=== PATIENT | female | born 1985 | race Caucasian/White ===

== ENCOUNTER → 2017-02-01 | Outpatient (CLI) | payer OTHER ==
[~2017-02-01] MED LIST: ALBU8I INH; EPIP0.3I IM; IBUP-232 PO; IBUP600 PO; OXYC1TAB63 PO; PERI8.6T PO; PRED20 PO; PRENTAB72 PO; SENN1TAB PO
== END ==
LOC: HPND 08:44
PROVIDERS: ATTEND Obstetrics & Gynecology
DX: O35.8XX0 Maternal care for other (suspected) fetal abnormality and damage, not applicable or unspecified (principal)
CPT/HCPCS: 76811; 76825; 76827; 93325

== ENCOUNTER 2017-02-02 14:56 | Emergency (ER) | payer OTHER ==
[~2017-02-02 14:56] MED LIST changes: -IBUP-232 PO; -OXYC1TAB63 PO; -SENN1TAB PO
--- NOTE | 2017-02-02 16:01 | PD ---
HPI Chief Complaint decreased motion Date Seen: Feb 02, 2017 Travel History International Travel<30 Days: No Contact w/Intl Traveler<30Days: No Known Affected Area: No History of Present Illness HPI 31 yo WF at 28 wks c/o dec FM since lat nite, no bleeding SROM or pain., FHR WNL for 28 wks and pt had US yest and arrythmia diagnosed by MFM. Para: 3 : 6 History Obstetric History Obstetric History 3 vag del 2 early preg losses Social History Alcohol Use: No Tobacco Use: No Substance Abuse: No Allergies-Medications (Allergen,Severity, Reaction): Coded Allergies: Bactrim (Verified Allergy, Severe, Anaphylaxis, 09/27/16) rash, swelling Sulfa (Verified Allergy, Mild, 09/27/16) Home Meds Active Scripts Epinephrine Inj (Epipen 2-Jaylen Inj)0.3 Mg/0.3 Ml Pfpen0.3 Mg IM ONCE PRN ( ALLERGIC REACTION) #1 PACK Ref 1 Prov:Tamiko Calhoun MD 09/27/16 Prednisone 20 Mg Tab20 Mg PO BID 3 Days Ref 0 Prov:Tamiko Calhoun MD 09/27/16 Sennosides-Docusate Sodium (Brittany-Colace 8.6-50 mg)1 Tab Tab2 Tab PO Q12H PRN ( CONSTIPATION) #20 TAB Ref 0 Prov:Tami Flores CNMP 12/20/14 Ibuprofen (Motrin 600 Mg Tab)600 Mg Qll608 Mg PO Q6H PRN ( CRAMPING) # 30 TAB Ref 0 Prov:Tami Flores CNMP 12/20/14 Albuterol Sulfate 8 GM Inhaler (Ventolin Hfa)60 Puff/8 Gm Aero2 Puff INH Q2H PRN (WHEEZING) #1 CONTAINER Ref 2 Prov:Tami Flores CNMP 12/20/14 Reported Medications Vit W/ Ferrous Fumara () Tab1 Po 08/28/12 Review of Systems General / Constitutional: No: Fever, Weight Gain, Chills, Other Eyes: No: Diploplia, Blurred Vision, Visual changes, Pain, Photophobia HENT: No: Headaches, Vertigo, Lightheadedness Cardiovascular: No: Irregular Rhythm, Chest Pain or Discomfort, Palpitations, Tachycardia, Syncope, Varicosities, Edema, Cyanosis Respiratory: No: Cough, Short of Breath, Other Gastrointestinal: No: Nausea, Vomiting, Diarrhea Genitourinary: No: Decreased Urinary Output, Oliguria Musculoskeletal: No: Limited ROM, Weakness, Cramping, Edema, Pain Skin: No Rash, No Itching, No Dryness, No Lumps, No Change in Pigmentation, No Change in Nails, No Alopecia, No Lesions Neurologic: No: Weakness, Dizziness, Syncope, Focal Abnormalities, Coordination Problem, Headache, Slurred Speech, Seizures Psychiatric: No: Depression, Suicidal Ideations, Homicidal Ideation Endocrine: No: Heat Intolerance, Cold Intolerance, Polydipsia, Polyuria, Other Physical Exam Narrative GENERAL: Well-nourished, well-developed patient. SKIN: Warm and dry. HEAD: Normocephalic and atraumatic. EYES: No scleral icterus. No injection or drainage. ENT: No nasal drainage noted. Mucous membranes pink. Airway patent. NECK: Supple, trachea midline. No JVD. CARDIOVASCULAR: Regular rate and rhythm without murmurs, gallops, or rubs. RESPIRATORY: Breath sounds equal bilaterally. No accessory muscle use. BREASTS: Bilateral exam showed no masses , no retractions, no nipple discharge. ABDOMEN/GI: Abdomen soft, non-tender, bowel sounds present, no rebound, no guarding Gravid to [28-] weeks size Fundal Height: [28-] Membranes: [intact ] Uterine Contractions: [none-] FHT's: Category: [1-] arrythmia could be heard Baseline: [133-] Reactive: [-yes] Variability: [mod-] Decels: [none-] EXTREMITIES: No cyanosis or edema. BACK: Nontender without obvious deformity. No CVA tenderness. NEUROLOGICAL: Awake and alert. Motor and sensory grossly within normal limits. Five out of 5 muscle strength in all muscle groups. Normal speech. Data Data Orders Us Ob Bpp Wo Nst (02/02/17 15:20) Labs BPP -8 of 8 MDM Interpretation(s) 31 yo WF at 28 wks with dec FM , recent diagnosis of arrythmia . BPP 8 of 8 today Plan D/C home Diagnosis Diagnosis: Primary Impression: Decreased movement affecting management of in third trimester Disposition: DISCHARGE HOME Condition: Stable Terry Frey II, MD Feb 02, 2017 16:01
== END 2017-02-02 16:56 | disposition home or self-care (01) ==
LOC: HOBED 14:56
DX: O36.8130 Decreased fetal movements, third trimester, not applicable or unspecified (principal); Z3A.28 28 weeks gestation of pregnancy
CPT/HCPCS: 76819

== ENCOUNTER → 2017-02-08 | Outpatient (CLI) | payer OTHER ==
[~2017-02-08] MED LIST changes: +IBUP-232 PO; +OXYC1TAB63 PO; +SENN1TAB PO
== END ==
LOC: HPND 07:51
PROVIDERS: ATTEND Obstetrics & Gynecology
DX: O35.8XX0 Maternal care for other (suspected) fetal abnormality and damage, not applicable or unspecified (principal)
CPT/HCPCS: 76815

== ENCOUNTER → 2017-02-22 | Outpatient (CLI) | payer OTHER | LOC: HPND 08:39 | PROVIDERS: ATTEND Obstetrics & Gynecology | DX: O35.8XX0 Maternal care for other (suspected) fetal abnormality and damage, not applicable or unspecified (principal) | CPT/HCPCS: 76816 ==

== ENCOUNTER → 2017-03-07 | Outpatient (CLI) | payer OTHER ==
--- NOTE | 2017-03-07 15:34 | HHI.PCNN ---
Addendum Remarks Consult for 32 + weeks Gestation on 03/07/17 at 11:30am Maternal Hx: 31 y/o female, , at 32 3/7 weeks gestation with a diagnosis of arrhythmia Evaluation by Maternal Medicine at the request of mothers OB, Dr. Darby. Most recent Ultrasound today on 03/07/17 confirms intrauterine . EDC of 04/27/17. Estimated weight is 1989 grams on US from 02/22/19. Maternal risk factors/complications: None contributory Maternal Medical history: Multiparous. Asthma that is well controlled. Previous spontaneous abortions x 2. Breast biopsy in 2011. Maternal Labs: Blood type A positive, Rubella immune, RPR NR, GC negative, Chlamydia negative , Hepatitis B negative, HIV negative, GBS unknown, Hep C negative, sickle cell negative, drug screen negative. Maternal Medications: PNV, Progesterone and Ventolin Discussion: Nurse Practitioner met with mother to discuss the arrhythmia that was first noted by OB at approximately 27 weeks gestation. At that time the mother was referred to [facility] for evaluation. Initial and subsequent ultrasounds were reported as showing good growth, frequent PACs with episodes of bigemini and an atrial septal aneurysm. There is a normal cardiac rate, no evidence of pericardial effusion or structural anomalies; however, it is noted that some views are limited due to lie. This consultation included providing information to the mother that at this time there is no obvious congenital cardiac anomaly warranting delivery at a level III NICU/center. Generalized care of the baby was discussed should the PAC s persist post delivery. Mother was also told that often PACs will resolve spontaneously after and only a small percentage of infants might progress to a more serious arrhythmia. Should the PACs persist, an echocardiogram and cardiac consult would be done. In particular, mother was concerned that if the needed an echocardiogram, it would not be done here at [facility]. Mother was assured that an echocardiogram could be done at [facility]. Mother states that should the infant require level III NICU, then she wouldnt mind going to [facility] in [place], as she had her first baby there. Recommendations: It is recommended by maternal/ medicine to continue to assess cardiac rate and rhythm q 2 weeks with growth measurement at least monthly, abstain from caffeine and stimulants, daily kick counts and echocardiogram post delivery if PACs present. Greater than 50% of the consultation time was spent with the patient. This case was discussed with my attending, Caterina Garrison March 07, 2017 15:34
== END ==
LOC: HPND 10:27
PROVIDERS: ATTEND Obstetrics & Gynecology
DX: O35.8XX0 Maternal care for other (suspected) fetal abnormality and damage, not applicable or unspecified (principal)
CPT/HCPCS: 76815

== ENCOUNTER → 2017-03-22 | Outpatient (CLI) | payer OTHER | LOC: HPND 10:35 | PROVIDERS: ATTEND Obstetrics & Gynecology | DX: O35.8XX0 Maternal care for other (suspected) fetal abnormality and damage, not applicable or unspecified (principal); Z3A.00 Weeks of gestation of pregnancy not specified | CPT/HCPCS: 76816 ==

== ENCOUNTER → 2017-04-05 | Outpatient (CLI) | payer OTHER | LOC: HPND 09:29 | PROVIDERS: ATTEND Obstetrics & Gynecology | DX: O35.8XX0 Maternal care for other (suspected) fetal abnormality and damage, not applicable or unspecified (principal); Z3A.36 36 weeks gestation of pregnancy | CPT/HCPCS: 76815 ==

== ENCOUNTER 2017-04-14 17:54 | Emergency (ER) | payer OTHER ==
[~2017-04-14 17:54] MED LIST changes: -IBUP-232 PO; -OXYC1TAB63 PO; -SENN1TAB PO
--- NOTE | 2017-04-14 19:07 | PD ---
HPI Chief Complaint Possibly leaking fluid Date Seen: Apr 14, 2017 Travel History International Travel<30 Days: No Contact w/Intl Traveler<30Days: No Known Affected Area: No History of Present Illness HPI Patient is 31-year-old white female at 38 weeks presents complaining of possibly leaking fluid that she's just noticed dampness in her underwear closed and she changes her close and layers repeat dampness but no real active leaking , no bleeding noted heart rate tracing is reactive and she is aly irregularly patient sees Dr. Darby for care Para: 3 : 6 History Obstetric History Obstetric History 3 vaginal deliveries too early losses This baby she's currently with has a congenital heart anomaly and she is being induced next week for the same Social History Alcohol Use: No Tobacco Use: No Substance Abuse: No Allergies-Medications (Allergen,Severity, Reaction): Coded Allergies: Bactrim (Verified Allergy, Severe, Anaphylaxis, 09/27/16) rash, swelling Sulfa (Verified Allergy, Mild, 09/27/16) Home Meds Active Scripts Epinephrine Inj (Epipen 2-Jaylen Inj)0.3 Mg/0.3 Ml Pfpen0.3 Mg IM ONCE PRN ( ALLERGIC REACTION) #1 PACK Ref 1 Prov:Tamiko Calhoun MD 09/27/16 Prednisone 20 Mg Tab20 Mg PO BID 3 Days Ref 0 Prov:Tamiko Calhoun MD 09/27/16 Sennosides-Docusate Sodium (Brittany-Colace 8.6-50 mg)1 Tab Tab2 Tab PO Q12H PRN ( CONSTIPATION) #20 TAB Ref 0 Prov:Tami Flores CNM 12/20/14 Ibuprofen (Motrin 600 Mg Tab)600 Mg [id number] Mg PO Q6H PRN ( CRAMPING) # 30 TAB Ref 0 Prov:Tami Flores CNM 12/20/14 Albuterol Sulfate 8 GM Inhaler (Ventolin Hfa)60 Puff/8 Gm Aero2 Puff INH Q2H PRN (WHEEZING) #1 CONTAINER Ref 2 Prov:Tami Flores CNM 12/20/14 Reported Medications Vit W/ Ferrous Fumara () Tab1 Po 08/28/12 Review of Systems General / Constitutional: No: Fever, Weight Gain, Chills, Other Eyes: No: Diploplia, Blurred Vision, Visual changes, Pain, Photophobia HENT: No: Headaches, Vertigo, Lightheadedness Cardiovascular: No: Irregular Rhythm, Chest Pain or Discomfort, Palpitations, Tachycardia, Syncope, Varicosities, Edema, Cyanosis Respiratory: No: Cough, Short of Breath, Other Gastrointestinal: No: Nausea, Vomiting, Diarrhea Genitourinary: No: Decreased Urinary Output, Oliguria Musculoskeletal: No: Limited ROM, Weakness, Cramping, Edema, Pain Skin: No Rash, No Itching, No Dryness, No Lumps, No Change in Pigmentation, No Change in Nails, No Alopecia, No Lesions Neurologic: No: Weakness, Dizziness, Syncope, Focal Abnormalities, Coordination Problem, Headache, Slurred Speech, Seizures Psychiatric: No: Depression, Suicidal Ideations, Homicidal Ideation Endocrine: No: Heat Intolerance, Cold Intolerance, Polydipsia, Polyuria, Other Physical Exam Narrative GENERAL: Well-nourished, well-developed patient. SKIN: Warm and dry. HEAD: Normocephalic and atraumatic. EYES: No scleral icterus. No injection or drainage. ENT: No nasal drainage noted. Mucous membranes pink. Airway patent. NECK: Supple, trachea midline. No JVD. CARDIOVASCULAR: Regular rate and rhythm without murmurs, gallops, or rubs. RESPIRATORY: Breath sounds equal bilaterally. No accessory muscle use. BREASTS: Bilateral exam showed no masses , no retractions, no nipple discharge. ABDOMEN/GI: Abdomen soft, non-tender, bowel sounds present, no rebound, no guarding Gravid to [-38] weeks size Fundal Height: [38-] GENITOURINARY: External Genitalia: intact and normal in appearance BUS glands: [-] Cervix: [-] Dilatation: [1-] Effacement: [-50] Station: [-3] Presentation: [vtx-] Membranes: [intact ] amnio sure negative Uterine Contractions: [Irregular-] FHT's: Category: [-1] Baseline: [-144] Reactive: [-yes] Variability: [-mod] Decels: [-0] EXTREMITIES: No cyanosis or edema. BACK: Nontender without obvious deformity. No CVA tenderness. NEUROLOGICAL: Awake and alert. Motor and sensory grossly within normal limits. Five out of 5 muscle strength in all muscle groups. Normal speech. Data Data Labs Amnio sure negative MDM Interpretation(s) Patient is 31-year-old white female at 38 weeks follow-up Wilner who presents complaining of possibly rupturing her membranes or leaking fluid. She' s had no gushes of fluid but is just dampness of her close over and over today. No bleeding noted heart rate tracing is reactive and there is irregular contractions noted. Her cervix is fingertip /50 and -3. Amnio sure is negative no leakage of fluid noted on just visualization of the lower vagina and perineum. Plan Plan to discharge patient home that she can return for either further leakage or pain or bleeding otherwise she'll see her OB doctor on Tuesday after her ultrasound on Tuesday and a planning induction on Tuesday Diagnosis Diagnosis: Primary Impression: No leakage of amniotic fluid into vagina Disposition: 01 DISCHARGE HOME Condition: Stable Terry Frey II, MD Apr 14, 2017 19:07
== END 2017-04-14 19:19 | disposition home or self-care (01) ==
LOC: HOBED 17:54
DX: O26.93 Pregnancy related conditions, unspecified, third trimester (principal); Z3A.38 38 weeks gestation of pregnancy
CPT/HCPCS: 84112; 99282

== ENCOUNTER 2017-04-18 09:36 | Emergency (ER) | payer OTHER ==
[~2017-04-18 09:36] MED LIST changes: -IBUP-232 PO; -OXYC1TAB63 PO; -SENN1TAB PO
--- NOTE | 2017-04-18 10:58 | PD ---
HPI Chief Complaint Contractions Date Seen: Apr 18, 2017 (Alison Bryant MD R2) Travel History International Travel<30 Days: No Contact w/Intl Traveler<30Days: No (Alison Bryant MD R2) History of Present Illness HPI Patient is a 31-year-old at 385/7 weeks gestation who presents today for contractions. Contractions started yesterday morning and have progressively increased in frequency. They're now occurring every 15 minutes. She also notes a large amount of clear, mucus discharge since this morning. She denies any vaginal bleeding. Positive movement. care with Dr. Darby. (Alison Bryant MD R2) History Past Medical History Medical History: Denies Significant Hx (Alison Bryant MD R2) Obstetric History Obstetric History 2009 at 39 weeks gestation 2010 SAB 7 weeks gestation 2010 SAB 9 weeks gestation 2011 at 39 weeks gestation 2014 at 39 weeks gestation (Alison Bryant MD R2) Past Surgical History Surgical History: No Previous Surgery (Alison Bryant MD R2) Family History Family History: Negative (Alison Bryant MD R2) Social History Alcohol Use: No Tobacco Use: No Substance Abuse: No (Alison Bryant MD R2) Allergies-Medications (Allergen,Severity, Reaction): Coded Allergies: Bactrim (Verified Allergy, Severe, Anaphylaxis, 09/27/16) rash, swelling Sulfa (Verified Allergy, Mild, 09/27/16) Home Meds Active Scripts Epinephrine Inj (Epipen 2-Jaylen Inj)0.3 Mg/0.3 Ml Pfpen0.3 Mg IM ONCE PRN ( ALLERGIC REACTION) #1 PACK Ref 1 Prov:Tamiko Calhoun MD 09/27/16 Prednisone 20 Mg Tab20 Mg PO BID 3 Days Ref 0 Prov:Tamiko Calhoun MD 09/27/16 Sennosides-Docusate Sodium (Brittany-Colace 8.6-50 mg)1 Tab Tab2 Tab PO Q12H PRN ( CONSTIPATION) #20 TAB Ref 0 Prov:Tami Flores CNM [employer]ERCIAL LOAN UNDERWRITER 12/20/14 Ibuprofen (Motrin 600 Mg Tab)600 Mg [id number] Mg PO Q6H PRN ( CRAMPING) # 30 TAB Ref 0 Prov:Tami Flores CNM [employer]ERCIAL LOAN UNDERWRITER 12/20/14 Albuterol Sulfate 8 GM Inhaler (Ventolin Hfa)60 Puff/8 Gm Aero2 Puff INH Q2H PRN (WHEEZING) #1 CONTAINER Ref 2 Prov:Tami Flores CNM COMMERCIAL LOAN UNDERWRITER 12/20/14 Reported Medications Vit W/ Ferrous Fumara () Tab1 Po 08/28/12 Review of Systems Except as stated in HPI: all other systems reviewed are Neg General / Constitutional: No: Fever, Chills Eyes: No: Visual changes HENT: No: Headaches Cardiovascular: No: Chest Pain or Discomfort Respiratory: No: Short of Breath Gastrointestinal: Nausea Genitourinary: Pelvic Pain, Discharge, No: Vaginal Bleeding Musculoskeletal: No: Edema Psychiatric: No: Substance Abuse (Alison Bryant MD R2) Physical Exam Narrative GENERAL: Well-nourished, well-developed patient. SKIN: Warm and dry. HEAD: Normocephalic and atraumatic. EYES: No scleral icterus. No injection or drainage. ENT: No nasal drainage noted. Mucous membranes pink. Airway patent. NECK: Supple, trachea midline. No JVD. CARDIOVASCULAR: Regular rate and rhythm without murmurs, gallops, or rubs. RESPIRATORY: Breath sounds equal bilaterally. No accessory muscle use. ABDOMEN/GI: Abdomen soft, non-tender, bowel sounds present, no rebound, no guarding Gravid to 38 weeks size GENITOURINARY: External Genitalia: intact and normal in appearance BUS glands: normal Cervix: posterior Dilatation: 3 Effacement: 30 Station: -3 Presentation: vertex Membranes: intact Uterine Contractions: q15min FHT's: Category: I Baseline: 130 Reactive: + Variability: moderate Decels: none EXTREMITIES: No cyanosis or edema. BACK: Nontender without obvious deformity. NEUROLOGICAL: Awake and alert. Motor and sensory grossly within normal limits. Normal speech. (Alison Bryant MD R2) Data Data Vital Signs Reviewed: Yes (Alison Bryant MD R2) MDM Medical Record Reviewed: Yes Narrative Course / MDM 31 year old at 38-5/7 weeks gestation. 1. IUP- Category I tracing, reassuring. 2. Vaginal Discharge- Amnisure negative. 3. Contractions- Early labor, will monitor for one hour and evaluate for cervical change. luis Manning Addendum: Cervical Exam after one hour remains unchanged. Will discharge patient to home. Counseled on labor precautions. (Alison Bryant MD R2) Diagnosis Diagnosis: Primary Impression: False labor Additional Impression: 38 weeks gestation of Disposition: 01 DISCHARGE HOME Condition: Stable Collaborating MD Comments I agree with the exam and management (Cassi Manning MD) Alison Bryant MD R2 Apr 18, 2017 10:58 Cassi Manning MD Apr 18, 2017 20:08
== END 2017-04-18 12:01 | disposition home or self-care (01) ==
LOC: HOBED 09:36
DX: O47.1 False labor at or after 37 completed weeks of gestation (principal); Z3A.38 38 weeks gestation of pregnancy
CPT/HCPCS: 59025; 84112

== ENCOUNTER → 2017-04-18 | Outpatient (CLI) | payer OTHER ==
[~2017-04-18] MED LIST changes: +IBUP-232 PO; +OXYC1TAB63 PO; +SENN1TAB PO
== END ==
LOC: HPND 09:00
PROVIDERS: ATTEND Obstetrics & Gynecology
DX: O35.8XX0 Maternal care for other (suspected) fetal abnormality and damage, not applicable or unspecified (principal)
CPT/HCPCS: 76816

== ENCOUNTER 2017-04-20 06:21 | Inpatient (IN) | payer OTHER ==
--- NOTE | 2017-04-19 16:21 | MH ---
cc: EDGARDO HELMS MD DATE OF ADMISSION: 04/20/2017 DATE OF : 1985 HISTORY: The patient is a 31 year-old female, 6, para 3-2-0-3. Patient's estimated date of confinement is April 27, 2017. The patient is 38 weeks and 6 days. Patient's has been complicated by the development of a arrhythmia which upon further evaluation there is identified an atrial septum aneurysm. The arrhythmia had resolved spontaneously approximately 34 weeks gestation. Recent estimated weight recorded April 18, 2017, the baby was 8 pounds 6 ounces at 3799 grams, biophysical profile was 8 out of 8. heart rate tracing was category 1, no evidence of arrhythmia or PACs. The patient is being brought in for induction of labor. OBSTETRICAL HISTORY: The patient initially was evaluated for arrhythmia at approximately 25 weeks gestation, was followed closely by OB Diagnostics with growth and resolution of the arrhythmia by 35 weeks was noted. The patient's Group B strep status is negative. Patient's blood type is A positive. The remainder of her evaluation is normal. The patient has had three prior vaginal deliveries all uncomplicated with rapid second stage. PAST MEDICAL HISTORY: History of asthma, well-controlled. She denies any other systemic or chronic disease. ALLERGIES SULFA. DAIRY MEDICATIONS: 1. vitamins. 2. Ventolin inhaler as needed. FAMILY HISTORY: Noncontributory. PAST SURGICAL HISTORY: Noncontributory SOCIAL HISTORY: She is , fully employed, denies use of alcohol, tobacco or illicit substances. PHYSICAL EXAMINATION: The patient is a well appearing, well-nourished female in no acute distress. Vital signs stable. Afebrile. Blood pressure is 120/66, pulse and respirations are normal. heart rate tracing is in the 140s and normal sinus rhythm. There is no evidence of PACs or audible arrhythmia. HEENT: No adenopathy or thyromegaly. LUNGS: Clear in all shah. CARDIAC: Regular rate and rhythm without murmurs, rubs, or gallops. ABDOMEN: Gravid, full term. Fundus measures 40 weeks. PELVIC: Consistent with cervix that is 50% effaced, 2 to 3 cm, soft, slightly posterior, minus 2 station, vertex intact plus membranes. EXTREMITIES: Symmetrical, full range of motion. No clubbing, cyanosis or edema. ASSESSMENT: Patient is 38/6 based on early first trimester exam and ultrasound. She has been followed for atrial septal aneurysm that has diminished in size on a echo, previous arrhythmia has resolved with a category one tracing noted. Group B strep status negative, proven pelvis of 8 pounds 15 ounces. History of asthma, well-controlled on a Ventolin inhaler. PLAN: The patient is to be brought in for induction of labor with Pitocin augmentation and artificial rupture of membranes. ADDENDUM: Discussion regarding the presence of atrial septal aneurysm by the neonatology and perinatology specialist, does not require necessary intervention at the time of . She is clear to proceed with delivery at [place] with immediate evaluation by the pediatric team and assistant dean of students. MD ANTHONY Stephenson/JANIS /1:02 PM /4:12 PM GARETH
[2017-04-20] VITALS (54 sets, daily range): BP systolic 78–122; BP diastolic 61–88; PULSE 67–123; RESP 16–18; TEMP 97.5–98.4
[2017-04-20] MEDS ORDERED: NS 1000 ML IV PRN (06:45)
[2017-04-20] MEDS ORDERED: ONDANSETRON HCL 4 MG/2 ML VIAL IV PRN (06:45)
[2017-04-20] MEDS ORDERED: LACTATED RINGER'S 1000 ML BOLUS IV PRN (06:45)
[2017-04-20] MEDS ORDERED: MINERAL OIL 10 ML VIAL TOPICAL PRN (06:45)
[2017-04-20] MEDS ORDERED: LIDOCAINE HCL 1% 50 ML VIAL I-DERMAL PRN (06:45)
[2017-04-20] MEDS ORDERED: OXYTOCIN 30 UNITS 500ML PREMIX IV ONE (06:45)
[2017-04-20] MEDS ORDERED: LIDOCAINE HCL 1% 50 ML VIAL INFIL PRN (06:45)
[2017-04-20] MEDS ORDERED: NS 500 ML BOLUS IV PRN (06:45)
[2017-04-20] MEDS ORDERED: CITRIC ACID-SODIUM CITRATE LIQ 30 ML UDC PO SCH (06:45)
[2017-04-20] MEDS ORDERED: LACTATED RINGER'S 1000 ML IV SCH (06:45)
[2017-04-20] MEDS ORDERED: OXYTOCIN 30 UNITS-500ML PREMIX 500 ML IV SCH (07:45)
[2017-04-20 09:30] LABS: AUTOMATED NEUTROPHIL # 6.2 TH/MM3 (1.8-7.7); BASOPHIL % 0.5 % (0.0-2.0); EOSINOPHIL # 0.1 TH/MM3 (0-0.4); EOSINOPHIL % 1.6 % (0.0-4.0); HEMATOCRIT 30.9 % (35.0-46.0); HEMO FLAGS DIFF FINAL; LYMPH % 21.9 % (9.0-44.0); LYMPHOCYTE # 1.9 TH/MM3 (1.0-4.8); MEAN CELL VOLUME 80.6 FL (80.0-100.0); MEAN CORPUSCULAR HEMOGLOBIN 26.1 PG (27.0-34.0); MEAN CORPUSCULAR HGB CONC 32.4 % (32.0-36.0); MONO % 5.1 % (0.0-8.0); NEUT % 70.9 % (16.0-70.0); PLATELET COUNT 184 TH/MM3 (150-450); RED BLOOD COUNT 3.83 MIL/MM3 (4.00-5.30); RED CELL DISTRIBUTION WIDTH 15.1 % (11.6-17.2); WHITE BLOOD COUNT 8.7 TH/MM3 (4.0-11.0)
[2017-04-20 09:44] LABS: BLOOD, URINE NEG (NEG); COMMENT (UR) CULT NOT INDICATED; CULTURE IF INDICATED CULT NOT INDICATED; GLUCOSE,URINE NEG (NEG); KETONE, URINE NEG (NEG); MUCUS URINE FEW /lpf (OCC); NITRITE,URINE NEG (NEG); PH, URINE 6.5 (5.0-8.5); SQUAMOUS EPITHELIAL CELL URINE 2 /hpf (0-5); URINE COLOR YELLOW (YELLW/STRAW)
[2017-04-20] MEDS ORDERED: fentaNYL 2MCG-BUPIV 0.125% INJ 100 ML ONE (10:08)
[2017-04-20] MEDS ORDERED: ePHEDrine/NS 25 MG/5 ML SYR ONE ×2 (10:08→10:24)
[2017-04-20] MEDS ORDERED: LIDOCAINE 2% JELLY 30 ML TUBE ONE (10:57)
[2017-04-20] MEDS ORDERED: LIDOCAINE HCL 1.5% PF SOLN 20 ML AMP ONE (11:14)
[2017-04-20] MEDS ORDERED: BUPIVACAINE HCL PF 0.25% 10 ML VIAL ONE (11:14)
[2017-04-20] MEDS ORDERED: ePHEDrine/NS 25 MG/5 ML SYR IV PRN (12:30)
[2017-04-20] MEDS ORDERED: DO NOT ADMINISTER ANTICOAGULANTS PRN (12:30)
[2017-04-20] MEDS ORDERED: NO SYSTEM NARCOTICS PRN (12:30)
--- NOTE | 2017-04-20 12:37 | PD.OB.DELI ---
Anesthesia: Epidural Episiotomy: None Vaginal Delivery: Normal Presentation: Occiput anterior Nuchal Cord: None Delayed cord clamping (45 sec): Yes Infant: Male One Minute : 8 Five Minute : 9 Weight: 9/0 Placenta: Spontaneous delivery Laceration: No lacerations Isidoro Darby MD Apr 20, 2017 12:37
--- NOTE | 2017-04-20 12:40 | HHI.DS ---
Admission Date Apr 20, 2017 at 06:21 Admitting Diagnosis Diagnosis: Vaginal Delivery: Normal : Male Brief History anomaly; atrial septal aneurysm Pt Condition on Discharge: Good Discharge Disposition: Discharge Home Discharge Instructions Diet Instructions: As Tolerated, No Restrictions Activities You Can Perform: Shower Only-No Bath Activities to Avoid: Driving for 24 hrs, Prolonged Standing, Strenuous Activity , Sexual Activity Isidoro Darby MD Apr 20, 2017 12:39
[2017-04-20] MEDS ORDERED: BENZOCAINE 20% TOPICAL SPRAY 60 ML CAN TOPICAL PRN (12:45)
[2017-04-20] MEDS ORDERED: ONDANSETRON ODT 4 MG TAB PO PRN (12:45)
[2017-04-20] MEDS ORDERED: ALUMINUM/MAGNESIUM/SIMETH 30 ML CUP PO PRN (12:45)
[2017-04-20] MEDS ORDERED: OXYTOCIN 10 UNIT/ML AMP XX PRN (12:45)
[2017-04-20] MEDS ORDERED: SODIUM CHLORIDE 0.9% FLUSH 10 ML FLUSH IV FLUSH PRN (12:45)
[2017-04-20] MEDS ORDERED: ACETAMINOPHEN 325 MG TAB PO PRN (12:45)
[2017-04-20] MEDS ORDERED: SODIUM CHLORIDE 0.9% FLUSH 10 ML FLUSH IV FLUSH SCH (12:45)
[2017-04-20] MEDS ORDERED: ZOLPIDEM TARTRATE 5 MG TAB PO PRN (12:45)
[2017-04-20] MEDS: IBUPROFEN 600 MG TAB PO PRN (15:41)
[2017-04-20] MEDS: WITCH HAZEL 50%/GLYCERIN 12.5% 40 PAD JAR TOPICAL PRN (15:41)
[2017-04-20] MEDS ORDERED: MEASLES, MUMPS, RUBELLA VACCINE 0.5 ML VIAL SQ ONE (16:00)
[2017-04-20] MEDS ORDERED: DIPHTH/TETANUS/ACEL PERTUSSIS (BOOSTER) 0.5 ML VIAL/PFS IM ONE (16:00)
[2017-04-20] MEDS: DOCUSATE SODIUM 50 MG/SENNA 8.6 MG TAB PO PRN (18:31)
[2017-04-20] MEDS ORDERED: KETOROLAC TROMETHAMINE 60 MG/2 ML (IM) VIAL IM PRN (20:45)
[2017-04-20] MEDS: MORPHINE SULFATE 8 MG/ML INJ IM PRN (22:51)
[2017-04-21] MEDS: MORPHINE SULFATE 8 MG/ML INJ IM PRN ×2 (03:13→09:07)
[2017-04-21] MEDS: IBUPROFEN 600 MG TAB PO PRN ×4 (03:13→21:57)
[2017-04-21] MEDS: DOCUSATE SODIUM 50 MG/SENNA 8.6 MG TAB PO PRN ×2 (07:12→21:57)
[2017-04-21 07:30] VITALS: BP 99/66; PULSE 66; RESP 18; TEMP 97.5
--- NOTE | 2017-04-21 08:42 | HHI.OB ---
Subjective Post Day: 1 Remarks feels tired, otherwise no c/o Objective Vitals/I&O Vital Signs Date Time Temp Pulse Resp B/P Pulse Ox O2 Delivery O2 Flow Rate FiO2 04/21/17 04:13 16 04/21/17 03:18 16 04/20/17 21:47 18 04/20/17 19:35 98.4 67 18 110/69 04/20/17 19:18 18 04/20/17 15:15 97.9 81 16 104/68 04/20/17 14:15 78 120/74 04/20/17 14:00 75 110/76 04/20/17 13:58 97.5 04/20/17 13:57 18 04/20/17 13:45 74 111/72 04/20/17 13:30 71 102/74 04/20/17 13:15 68 109/73 04/20/17 11:45 83 113/81 04/20/17 11:40 81 04/20/17 11:35 76 04/20/17 11:30 77 105/77 04/20/17 11:30 80 04/20/17 11:25 75 04/20/17 11:22 97.7 04/20/17 11:20 73 04/20/17 11:15 78 04/20/17 11:15 78 122/88 04/20/17 11:10 73 04/20/17 11:09 73 114/75 04/20/17 11:06 70 113/75 04/20/17 11:05 82 04/20/17 11:04 88 113/78 04/20/17 11:00 73 98/85 04/20/17 11:00 88 04/20/17 10:58 80 78/62 04/20/17 10:55 79 04/20/17 10:55 77 101/68 04/20/17 10:51 79 113/68 04/20/17 10:50 82 04/20/17 10:48 79 111/70 04/20/17 10:45 95 113/68 04/20/17 10:45 74 04/20/17 10:42 72 112/64 04/20/17 10:40 84 04/20/17 10:39 89 108/66 04/20/17 10:36 88 108/69 04/20/17 10:35 82 04/20/17 10:33 86 111/67 04/20/17 10:30 84 04/20/17 10:30 87 100/87 04/20/17 10:28 77 115/69 04/20/17 10:26 96 107/69 04/20/17 10:25 80 04/20/17 10:24 81 90/61 04/20/17 10:21 97 97/72 04/20/17 10:20 123 04/20/17 10:18 115 98/67 04/20/17 10:16 77 111/72 04/20/17 10:15 87 04/20/17 10:13 81 110/78 04/20/17 10:10 81 04/20/17 09:30 117 106/68 04/20/17 09:00 98 112/85 Objective Remarks GENERAL: Well-nourished, well-developed patient. CARDIOVASCULAR: Regular rate and rhythm without murmurs, gallops, or rubs. RESPIRATORY: Breath sounds equal bilaterally. No accessory muscle use. ABDOMEN/GI: Abdomen soft, non-tender. Fundus: Firm, non-tender at umbilicus. GENITOURINARY: Light to moderate bleeding. EXTREMITIES: No cyanosis or edema, non-tender, without signs of DVT. Medications and IVs Current Medications Medications (Trade) Dose Ordered Sig/Malick Route Start Time Stop Time Status Last Admin Lactated Ringer's 1,000 ml @ 125 mls/hr Q8H IV 04/20/17 06:45 04/20/17 07:51 Lactated Ringer's 1,000 ml @ 3,000 mls/hr BOLUS PRN IV 04/20/17 06:45 Sodium Chloride 500 ml @ 1,000 mls/hr BOLUS PRN IV 04/20/17 06:45 (NS 1000 ml Inj) 1,000 ml @ 100 mls/hr Q10H PRN IV 04/20/17 06:45 (Zofran Inj) 4 mg Q6H PRN IV 04/20/17 06:45 Mineral Oil 10 ml 10 ml UNSCH PRN TOPICAL 04/20/17 06:45 (Pitocin 30 Units-NS 500 ml Premix) 500 ml @ 0 mls/hr TITRATE IV 04/20/17 07:45 04/20/17 07:49 Miscellaneous Information No systemic narcotics to be given except... UNSCH PRN .XX 04/20/17 12:30 04/21/17 12:29 Miscellaneous Information DO NOT ADMINISTER ANY ANTICOAGUL... UNSCH PRN .XX 04/20/17 12:30 04/21/17 12:29 (ePHEDrine/NS 25 MG/5 ML SYR) 10 mg UNSCH PRN IV 04/20/17 12:30 04/21/17 12:29 04/20/17 12:47 (NS Flush) 2 ml BID IV FLUSH 04/20/17 12:45 (NS Flush) 2 ml UNSCH PRN IV FLUSH 04/20/17 12:45 (Tylenol) 650 mg Q4H PRN PO 04/20/17 12:45 04/20/17 18:31 (Motrin) 600 mg Q6H PRN PO 04/20/17 12:45 04/21/17 03:13 (Americaine 20% Top Spr) 1 spray Q4H PRN TOPICAL 04/20/17 12:45 04/20/17 15:41 (Tucks Pads) 1 applic QID PRN TOPICAL 04/20/17 12:45 04/20/17 15:41 (Brittany-Colace) 2 tab Q12H PRN PO 04/20/17 12:45 04/21/17 07:12 (Ambien) 5 mg HS PRN PO 04/20/17 12:45 (Mag-Al Plus Susp Liq) 15 ml Q8H PRN PO 04/20/17 12:45 (Zofran Odt) 4 mg Q6H PRN PO 04/20/17 12:45 (Toradol Inj) 30 mg Q6H PRN IM 04/20/17 20:45 04/20/17 20:47 (Morphine Inj) 5 mg Q4H PRN IM 04/20/17 22:45 04/21/17 03:13 Assessment/Plan Assessment and Plan s/p PPD #1, pain relieved with morphine IM Discharge Planning in AM Attending Attestation pt seen by Adalgisa Curry MD Apr 21, 2017 08:42
[2017-04-21] MEDS ORDERED: BISACODYL 10 MG SUPP RECTAL PRN (16:00)
[2017-04-21] MEDS: oxyCODONE/ACETAMINOPHEN 5 MG/325 MG TAB PO PRN ×2 (16:08→21:57)
[2017-04-21 19:28] VITALS: BP 89/56; PULSE 71; RESP 18; TEMP 97.7
[2017-04-21] MEDS: WITCH HAZEL 50%/GLYCERIN 12.5% 40 PAD JAR TOPICAL PRN (21:57)
[2017-04-22] MEDS: oxyCODONE/ACETAMINOPHEN 5 MG/325 MG TAB PO PRN ×2 (04:07→10:45)
[2017-04-22] MEDS: IBUPROFEN 600 MG TAB PO PRN ×2 (04:08→10:45)
[2017-04-22] MEDS ORDERED: SENN1TAB PO (07:29)
[2017-04-22] MEDS ORDERED: OXYC1TAB63 PO (07:29)
[2017-04-22] MEDS ORDERED: IBUP-232 PO (07:29)
--- NOTE | 2017-04-22 07:32 | HHI.OB ---
Subjective Post Day: 2 Remarks s/p Objective Vitals/I&O Vital Signs Date Time Temp Pulse Resp B/P Pulse Ox O2 Delivery O2 Flow Rate FiO2 04/21/17 19:28 89/56 04/21/17 19:28 97.7 71 18 Objective Remarks GENERAL: Well-nourished, well-developed patient. CARDIOVASCULAR: Regular rate and rhythm without murmurs, gallops, or rubs. RESPIRATORY: Breath sounds equal bilaterally. No accessory muscle use. ABDOMEN/GI: Abdomen soft, non-tender. Fundus: Firm, non-tender at umbilicus. GENITOURINARY: Light to moderate bleeding. EXTREMITIES: No cyanosis or edema, non-tender, without signs of DVT. Medications and IVs Current Medications Medications (Trade) Dose Ordered Sig/Malick Route Start Time Stop Time Status Last Admin Lactated Ringer's 1,000 ml @ 125 mls/hr Q8H IV 04/20/17 06:45 04/20/17 07:51 Lactated Ringer's 1,000 ml @ 3,000 mls/hr BOLUS PRN IV 04/20/17 06:45 Sodium Chloride 500 ml @ 1,000 mls/hr BOLUS PRN IV 04/20/17 06:45 (NS 1000 ml Inj) 1,000 ml @ 100 mls/hr Q10H PRN IV 04/20/17 06:45 (Zofran Inj) 4 mg Q6H PRN IV 04/20/17 06:45 Mineral Oil 10 ml 10 ml UNSCH PRN TOPICAL 04/20/17 06:45 (Pitocin 30 Units-NS 500 ml Premix) 500 ml @ 0 mls/hr TITRATE IV 04/20/17 07:45 04/20/17 07:49 (NS Flush) 2 ml BID IV FLUSH 04/20/17 12:45 (NS Flush) 2 ml UNSCH PRN IV FLUSH 04/20/17 12:45 (Tylenol) 650 mg Q4H PRN PO 04/20/17 12:45 04/20/17 18:31 (Motrin) 600 mg Q6H PRN PO 04/20/17 12:45 04/22/17 04:08 (Americaine 20% Top Spr) 1 spray Q4H PRN TOPICAL 04/20/17 12:45 04/20/17 15:41 (Tucks Pads) 1 applic QID PRN TOPICAL 04/20/17 12:45 04/21/17 21:57 (Brittany-Colace) 2 tab Q12H PRN PO 04/20/17 12:45 04/21/17 21:57 (Ambien) 5 mg HS PRN PO 04/20/17 12:45 (Mag-Al Plus Susp Liq) 15 ml Q8H PRN PO 04/20/17 12:45 (Zofran Odt) 4 mg Q6H PRN PO 04/20/17 12:45 04/21/17 16:08 (Toradol Inj) 30 mg Q6H PRN IM 04/20/17 20:45 04/20/17 20:47 (Percocet 5-325 Mg) 1 tab Q6H PRN PO 04/21/17 16:00 04/22/17 04:07 (Percocet 5-325 Mg) 2 tab Q6H PRN PO 04/21/17 16:00 04/21/17 21:57 (Dulcolax Supp) 10 mg DAILY PRN RECTAL 04/21/17 16:00 04/21/17 16:08 Assessment/Plan Assessment and Plan s/p PPD #2 doing well, d/c to home today for circ this AM Discharge Planning today Staci Cardoza MD Apr 22, 2017 07:32
[2017-04-22 08:40] VITALS: BP 100/61; PULSE 66; RESP 18; TEMP 97.8
[2017-04-22] MEDS: DOCUSATE SODIUM 50 MG/SENNA 8.6 MG TAB PO PRN (10:45)
== END 2017-04-22 13:16 | disposition home or self-care (01) | DRG 775 ==
LOC: H2EB 06:21 → H1EA 14:44
PROVIDERS: ADMIT Obstetrics & Gynecology; ATTEND Obstetrics & Gynecology
PROC: 10E0XZZ Delivery of Products of Conception, External Approach (ICD-10-PCS; principal; 2017-04-20)
PROC: 3E033VJ Introduction of Other Hormone into Peripheral Vein, Percutaneous Approach (ICD-10-PCS; 2017-04-20)
PROC: 00HU33Z Insertion of Infusion Device into Spinal Canal, Percutaneous Approach (ICD-10-PCS; 2017-04-20)
PROC: 3E0R3CZ (ICD-10-PCS; 2017-04-20)
DX: O35.8XX0 Maternal care for other (suspected) fetal abnormality and damage, not applicable or unspecified (principal); J45.909 Unspecified asthma, uncomplicated; O99.52 Diseases of the respiratory system complicating childbirth; Z37.0 Single live birth; Z3A.38 38 weeks gestation of pregnancy
CPT/HCPCS: 59025; 76816; 81001; 84112; 85025; 90715; J1885; J2270; J2590; J7120